=== PATIENT | female | born 1990 | race Caucasian/White ===

== ENCOUNTER 2018-10-29 12:04 | Outpatient (CLI) | payer OTHER ==
[~2018-10-29] VITALS: Ht 170.2 cm; Wt 107.6 kg
[2018-10-29 12:51] VITALS: BP 103/56; PULSE 89; RESP 17; Ht 170.2 cm; Wt 107.6 kg
--- NOTE | 2018-10-29 16:10 | TRIAGE ---
OB Triage Datetime Report Generated by CPN: 10/29/2018 16:10 Datetime: 10/29/2018 15:41 Pattern: Normal: <= 5 Contractions in 10 Minutes Resting Tone Drake: Relaxed Contraction Comments: no uc Heart Rate FHR Baseline Rate: 135 Variability: Moderate 6-25 bpm Accelerations: 15X15 Decelerations: None Category: Category I Datetime: 10/29/2018 15:01 Labor Evaluation Frequency: x1 Monitor Mode: External Duration (sec)2399: 40 Quality: Mild Pattern: Normal: <= 5 Contractions in 10 Minutes Resting Tone Drake: Relaxed Heart Rate FHR Baseline Rate: 135 Monitor Mode: External US Variability: Moderate 6-25 bpm Accelerations: 15X15 Decelerations: None Category: Category I Datetime: 10/29/2018 14:00 Pattern: Normal: <= 5 Contractions in 10 Minutes Resting Tone Drake: Relaxed Contraction Comments: no uc Heart Rate FHR Baseline Rate: 135 Monitor Mode: External US Variability: Moderate 6-25 bpm Accelerations: 15X15 Decelerations: None Category: Category I Datetime: 10/29/2018 13:00 Labor Evaluation Frequency: x1 Monitor Mode: External Duration (sec)2399: 50 Quality: Mild Pattern: Normal: <= 5 Contractions in 10 Minutes Resting Tone Drake: Relaxed Heart Rate FHR Baseline Rate: 135 Monitor Mode: External US Variability: Moderate 6-25 bpm Accelerations: 15X15 Decelerations: None Category: Category I Pain Assessment Pain Scale: 6 Pain Type: Cramping Pain Goal: 3 Datetime: 10/29/2018 12:55 Assessment Type: Triage Maternal Assessment Level of Consciousness: Keenly Alert, Responsive DTR's/Clonus: DTRs 2+; No Clonus Headache: Denies Blurred Vision: No Respiratory Effort: Unlabored; Regular Rhythm; Equal Expansion Breath Sounds, Left: Clear and Equal Breath Sounds, Right: Clear and Equal Nausea/Vomiting: Denies RUQ Epigastric Pain: Denies Lower Extremities Edema: None Degree: None Upper Extremities Edema: None Degree: None Facial Edema: None Fall Risk Assessment History of Falling: (0) No Secondary Diagnosis: (0) No Ambulatory Aid: (0) Bedrest/Nurse Assist IV Therapy: (0) No Gait: (0) Normal/Bedrest/Immobile Mental Status: (0) Oriented to Own Ability Fall Score: 0 Fall Risk Score Definition: No Risk: No action required Datetime: 10/29/2018 12:53 Time of Arrival: 10/29/2018 11:58 EGA: 32.3 Arrived By: Ambulatory Arrived From: Home Chief Complaint: c/o cramping, back pain since 3 days ago, was in [facility], [facility] [address] [facility], deny srom, deny vag. bleeding Movement: Present Contractions: Denies/Absent Rupture of Membranes: Denies Vaginal Bleeding: None Vaginal Discharge: Denies Recent Sexual Intercouse: Denies Abdominal Trauma: Not Applicable Patient Complaints: Cramping Time Provider Notified: 10/29/2018 12:55 Provider Notified: Initial Plan: r/o ptl
--- NOTE | 2018-10-29 18:27 | PN ---
Triage Information Date/Time 10/29/1809/12/1818 Reason for visit: backache and cramping pain for the last 3days, Yesterday treated with terbutaline at [facility] ,sent home Weeks of Gestation 32w3d /Para Diabetes: none Hypertention: none Objective Vital Signs Date Temp Pulse Resp B/P (MAP) Pulse Ox O2 O2 Flow FiO2 Time Delivery Rate 10/29/18 98.1 89 17 103/56 12:51 (72) Heart Rate: 140's Heart Rate Comments CAT I Contractions: >10 Minutes Apart Exam mostly when baby is moving she felt pain Results/Medications Result Diagram: 10/29/18 1400 Results 24 hrs Laboratory Tests Test 10/29/18 13:00 10/29/18 14:00 Urine Color STRAW Urine Clarity CLEAR Urine pH 7.0 Urine Specific [place] 1.008 Urine Ketones NEGATIVE Urine Nitrite NEGATIVE Urine Bilirubin NEGATIVE Urine Urobilinogen NEGATIVE Urine Leukocyte Esterase NEGATIVE Urine Hemoglobin NEGATIVE Urine Glucose NEGATIVE Urine Total Protein NEGATIVE White Blood Count 9.6 Red Blood Count 3.80 L Hemoglobin 11.3 L Hematocrit 33.5 L Mean Corpuscular Volume 88.2 Mean Corpuscular Hemoglobin 29.7 Mean Corpuscular Hemoglobin Concent 33.7 Red Cell Distribution Width 12.9 Platelet Count 230 Mean Platelet Volume 9.9 Immature Granulocytes % 0.600 H Neutrophils % 76.2 Lymphocytes % 16.0 Monocytes % 5.1 Eosinophils % 1.6 Basophils % 0.5 Nucleated Red Blood Cells % 0.0 Immature Granulocytes # 0.060 H Neutrophils # 7.3 Lymphocytes # 1.5 Monocytes # 0.5 Eosinophils # 0.2 Basophils # 0.1 Nucleated Red Blood Cells # 0.0 Imaging Results BPP 8/8 SUSAN 13 CVL 4.9 Disposition: Discharge Assessment/Plan A IUP 32w3d back pain pelvic pain P discharge home with routine labor instructions SHERRILL BURTON MD Oct 29, 2018 18:27
== END 2018-10-29 16:04 | disposition home or self-care (01) ==
LOC: OBT 12:04 → L-D 12:05 → OBT 16:04
PROVIDERS: ATTEND Obstetrics & Gynecology
DX: O26.893 Other specified pregnancy related conditions, third trimester (principal); Z3A.32 32 weeks gestation of pregnancy; M54.9 Dorsalgia, unspecified
CPT/HCPCS: 76817; 76818; 81003; 85025; 87086; Z7500; G0463

== ENCOUNTER 2018-12-10 22:30 | Outpatient (CLI) | payer OTHER ==
[~2018-12-10] VITALS: Ht 170.2 cm; Wt 112.1 kg
[~2018-12-10 22:30] MED LIST: CHOL400T10 PO; DOCU-144 PO; IBUP-1542 PO; PREN-19 PO
[2018-12-10 23:32] VITALS: BP 133/72; PULSE 71; RESP 16
--- NOTE | 2018-12-10 23:46 | PN ---
Triage Information Date/Time Reason for visit: Uterine contractions Weeks of Gestation 28-year-old 2 para 1 at 38 weeks of gestation with estimated date of delivery December 20, 2018 Patient presents with chief complaint of uterine contractions Patient reports positive movement, denies vaginal bleeding or leaking fluid /Para 2 para 1 Diabetes: none Hypertention: none Objective Vital Signs Date Temp Pulse Resp B/P (MAP) Pulse Ox O2 O2 Flow FiO2 Time Delivery Rate 12/10/18 98.0 71 16 133/72 Room Air 23:32 (92) Heart Rate: 140's Heart Rate Comments heart rate tracing category 1 Contractions: 6-10 Minutes Apart Exam Cervix closed per nurse Results/Medications Results 24 hrs Laboratory Tests Test 12/10/18 22:30 Urine Color STRAW Urine Clarity CLEAR Urine pH 7.0 Urine Specific [place] 1.005 Urine Ketones NEGATIVE Urine Nitrite NEGATIVE Urine Bilirubin NEGATIVE Urine Urobilinogen NEGATIVE Urine Leukocyte Esterase NEGATIVE Urine Hemoglobin NEGATIVE Urine Glucose NEGATIVE Urine Total Protein NEGATIVE Imaging Results PROCEDURE: ULTRASOUND BIOPHYSICAL PROFILE CLINICAL INDICATION: 28-year-old female with contractions for viability. TECHNIQUE: Multiple sonographic images were obtained in order to perform a biophysical profile The images were reviewed on a PACS workstation. COMPARISON: Ultrasound biophysical profile October 29, 2018. FINDINGS: There is a single viable intrauterine gestation. There is a vertex presentation. Cardiac activity is present at 152 beats per minute. The placenta is posterior grade II. The results of the biophysical profile are as follows: breathing movement = 2/2 Gross body movement = 2/2 tone = 2/2 Qualitative amniotic fluid volume = 2/2 Amniotic fluid index equals 15.7 cm. The maximal vertical pocket is 5.2 cm. This yields a biophysical profile score of 8/8. IMPRESSION: Biophysical profile score is 8/8. .Charles Nieto MD, MD Date Time Electronically viewed and signed by .Charles Nieto MD, on 12/11/2018 01:13 .M/ CC: DIANA VALDIVIA MD [phone] Disposition: Discharge Assessment/Plan kick count instructions were given Labor precautions were given Patient instructed to follow-up with [facility] in 1 to 2 days DIANA VALDIVIA MD Dec 10, 2018 23:46
--- NOTE | 2018-12-11 02:00 | TRIAGE ---
OB Triage Datetime Report Generated by CPN: 12/11/2018 02:00 Datetime: 12/11/2018 00:30 Stage of : OB Triage Heart Rate FHR Baseline Rate: 150 Monitor Mode: External US FHR Baseline Changes: No Baseline Change Variability: Moderate 6-25 bpm Accelerations: 15X15 Decelerations: None Category: Category I Comments: Baby audiblt very active Datetime: 12/10/2018 23:16 Labor Evaluation Frequency: q5 Monitor Mode: External Quality: Mild Pattern: Normal: <= 5 Contractions in 10 Minutes Resting Tone [place]: Relaxed Heart Rate FHR Baseline Rate: 130 Monitor Mode: External US FHR Baseline Changes: No Baseline Change Variability: Moderate 6-25 bpm Accelerations: 15X15 Decelerations: None Category: Category I Vaginal Exam Dilatation (cms): 0.0 Effacement (%): 50 Station: -3 Exam By: Erica Bennett Membrane Status: Intact Vaginal Bleeding: None Cervix, Consistency: Soft Cervix, Position: Posterior Datetime: 12/10/2018 23:07 Stage of : OB Triage Datetime: 12/10/2018 23:00 Time of Arrival: 12/10/2018 22:25 EGA: 38.3 Arrived By: Wheelchair Arrived From: Home Chief Complaint: c/o ucs Movement: Present Contractions: Regular Time Contractions Began: 12/10/2018 21:00 Contractions: Q5 Rupture of Membranes: Denies Vaginal Bleeding: None Vaginal Discharge: Denies Recent Sexual Intercouse: Denies Abdominal Trauma: Not Applicable Patient Complaints: Contractions Time Provider Notified: 12/10/2018 23:00 Provider Notified: dR Tavares Initial Plan: EFM,SVE,UA,BPP Datetime: 12/10/2018 22:59 Stage of : OB Triage Maternal Assessment Level of Consciousness: Keenly Alert, Responsive Headache: Denies Blurred Vision: No Respiratory Effort: Unlabored Nausea/Vomiting: Denies RUQ Epigastric Pain: Denies Facial Edema: None Monitor Mode: External Resting Tone [place]: Relaxed Heart Rate FHR Baseline Rate: 135 Monitor Mode: External US Pain Assessment Pain Scale: 5 Pain Presence: Intermittent Pain Type: Contraction Pain Location: Abdomen Datetime: 10/29/2018 12:55 Fall Risk Assessment Fall Score: 0 Fall Risk Score Definition: No Risk: No action required Datetime: 10/29/2018 12:53 EGA: 32.3
== END 2018-12-11 00:46 | disposition home or self-care (01) ==
LOC: OBT 22:30 → L-D 22:31 → OBT 12-11 00:46
PROVIDERS: ATTEND Obstetrics & Gynecology
DX: O62.9 Abnormality of forces of labor, unspecified (principal); Z3A.38 38 weeks gestation of pregnancy
CPT/HCPCS: 76818; 81003; Z7500; G0463

== ENCOUNTER 2018-12-15 09:00 | Inpatient (IN) | payer OTHER ==
[~2018-12-15] VITALS: Ht 170.2 cm; Wt 112.2 kg
[2018-12-15 09:32] VITALS: Ht 170.2 cm; Wt 112.2 kg
[2018-12-15 09:35] VITALS: BP 124/73; PULSE 78; RESP 18
[2018-12-15] MEDS ORDERED: LACTATED RINGER'S 1,000 ML IV PRN (09:36)
[2018-12-15] MEDS: LACTATED RINGER'S 1,000 ML IV SCH ×2 (09:54→17:24)
[2018-12-15] MEDS ORDERED: OXYTOCIN 30 UNITS/LR 500 ML IV PRN (10:00)
[2018-12-15] MEDS ORDERED: IBUPROFEN 600 MG TAB PO PRN (10:00)
[2018-12-15] MEDS ORDERED: BUTORPHANOL 2 MG INJ IV PRN (10:00)
[2018-12-15] MEDS ORDERED: CARBOPROST 250 MCG/ML VIAL IM PRN (10:00)
[2018-12-15] MEDS ORDERED: METHYLERGONOVINE 0.2 MG INJ IM PRN (10:00)
[2018-12-15] MEDS ORDERED: AMPICILLIN 2 GM/NS (PMX) 100 ML IV ONE (10:00)
[2018-12-15] MEDS ORDERED: MISOPROSTOL 200 MCG TAB PR PRN (10:00)
[2018-12-15] MEDS ORDERED: OXYTOCIN 30 UNITS/LR 500 ML IV SCH ×3 (10:00)
[2018-12-15] MEDS ORDERED: LIDOCAINE 1% (MPF) 30 ML INJ INJ PRN (10:00)
[2018-12-15] MEDS: MISOPROSTOL 50 MCG CAPSULE PO SCH ×3 (10:51→19:02)
[2018-12-15] MEDS ORDERED: MISOPROSTOL 50 MCG CAPSULE PO SCH ×2 (11:00→13:00)
[2018-12-15] MEDS: AMPICILLIN 1 GM/NS (PMX) 50 ML IV SCH ×3 (15:03→22:33)
[2018-12-16] VITALS (7 sets, daily range): BP systolic 116–129; BP diastolic 59–67; PULSE 75–89; RESP 16–18
[2018-12-16] MEDS: AMPICILLIN 1 GM/NS (PMX) 50 ML IV SCH ×4 (02:55→16:26)
[2018-12-16] MEDS: LACTATED RINGER'S 1,000 ML IV SCH ×2 (04:07→09:46)
[2018-12-16] MEDS ORDERED: FENTAnyl 2MCG/ML-ROPIV 0.2% 100 ML ONE (09:19)
[2018-12-16] MEDS ORDERED: DIPHENHYDRAMINE 50 MG INJ IV PRN (12:30)
[2018-12-16] MEDS ORDERED: NALOXONE (0.4 MG/ML) INJ IV PRN (12:30)
[2018-12-16] MEDS ORDERED: FENTAnyl 2MCG/ML-ROPIV 0.2% 100 ML BAG EPI SCH (12:30)
[2018-12-16] MEDS ORDERED: ONDANSETRON 4 MG INJ IV PRN ×2 (12:30→19:00)
[2018-12-16] MEDS ORDERED: OXYTOCIN 30 UNITS/LR 500 ML IV SCH (18:41)
[2018-12-16] MEDS ORDERED: MISOPROSTOL 200 MCG TAB PR PRN (19:00)
[2018-12-16] MEDS ORDERED: OXYTOCIN 30 UNITS/LR 500 ML IV PRN (19:00)
[2018-12-16] MEDS ORDERED: ACETAMINOPHEN 325 MG TAB PO PRN (19:00)
[2018-12-16] MEDS ORDERED: DIPHENHYDRAMINE 25 MG CAP PO PRN (19:00)
[2018-12-16] MEDS ORDERED: ZOLPIDEM 5 MG TAB PO PRN (19:00)
[2018-12-16] MEDS ORDERED: NACL 0.9% 3 ML SYG IV SCH (19:00)
[2018-12-16] MEDS ORDERED: CARBOPROST 250 MCG/ML VIAL IM PRN (19:00)
[2018-12-16] MEDS ORDERED: HYDROCODONE/APAP (5/325) TAB PO PRN (19:00)
[2018-12-16] MEDS: IBUPROFEN 600 MG TAB PO SCH (19:11)
[2018-12-16] MEDS: WITCH HAZEL/GLYCERIN PAD PR PRN (19:11)
[2018-12-16] MEDS: SENNA/DOCUSATE NA (8.6MG/50MG) TAB PO SCH (21:09)
[2018-12-17] VITALS (7 sets, daily range): BP systolic 106–131; BP diastolic 58–76; PULSE 63–70; RESP 16–19
[2018-12-17] MEDS: LANOLIN HPA 1 PKT TOP PRN ×3 (00:18→11:01)
[2018-12-17] MEDS: IBUPROFEN 600 MG TAB PO SCH ×5 (00:18→23:34)
[2018-12-17] MEDS: CHOLECALCIFEROL 400 UNITS TAB PO SCH ×2 (00:18→09:10)
[2018-12-17] MEDS: SENNA/DOCUSATE NA (8.6MG/50MG) TAB PO SCH ×2 (09:11→20:28)
[2018-12-17] MEDS: WITCH HAZEL/GLYCERIN PAD PR PRN (13:29)
[2018-12-18 04:47] VITALS: BP 108/58; PULSE 58; RESP 16
[2018-12-18] MEDS: IBUPROFEN 600 MG TAB PO SCH ×2 (05:33→12:52)
[2018-12-18] MEDS: SENNA/DOCUSATE NA (8.6MG/50MG) TAB PO SCH (08:40)
[2018-12-18] MEDS: CHOLECALCIFEROL 400 UNITS TAB PO SCH (08:40)
[2018-12-18] MEDS: LANOLIN HPA 1 PKT TOP PRN (08:40)
== END 2018-12-18 16:00 | disposition home or self-care (01) | DRG 807 ==
LOC: L-D 09:10 → PP1 12-16 19:05
PROVIDERS: ADMIT Obstetrics & Gynecology; ATTEND Obstetrics & Gynecology
PROC: 10E0XZZ Delivery of Products of Conception, External Approach (ICD-10-PCS; principal; 2018-12-16)
PROC: 3E033VJ Introduction of Other Hormone into Peripheral Vein, Percutaneous Approach (ICD-10-PCS; 2018-12-16)
DX: O69.81X0 Labor and delivery complicated by cord around neck, without compression, not applicable or unspecified (principal); Z37.0 Single live birth; Z3A.39 39 weeks gestation of pregnancy
CPT/HCPCS: 76815; 85014; 85018; 85025; 85610; 85730; 86592; 86850; 86900; 86901; 87340; 99464; J0290; J2590; J3010; J7120